=== PATIENT | male | born 1990 | race Caucasian/White ===

== ENCOUNTER 2016-08-25 15:44 | Emergency (ER) | payer MEDICAID ==
[~2016-08-25] VITALS: Ht 172.7 cm; Wt 66.2 kg
[2016-08-25 15:45] VITALS: BP 147/97
[2016-08-25] MEDS ORDERED: LIDOCAINE 1%, 20ML SQ ONE (16:00)
[2016-08-25] MEDS ORDERED: LIDOCAINE 1%, 20ML ONE (16:10)
[2016-08-25] MEDS ORDERED: FLUO40CA9 PO (16:13)
== END 2016-08-25 17:27 | disposition home or self-care (01) ==
LOC: ED 16:58
DX: S61.217A Laceration without foreign body of left little finger without damage to nail, initial encounter (principal); X99.8XXA Assault by other sharp object, initial encounter; Y93.89 Activity, other specified; Y92.89 Other specified places as the place of occurrence of the external cause; Y99.8 Other external cause status
CPT/HCPCS: 29125; 99284